=== PATIENT | female | born 1940 | race Caucasian/White ===

== ENCOUNTER 2019-06-07 17:24 | Emergency (ER) | payer MEDICARE, OTHER ==
[~2019-06-07] VITALS: Ht 160 cm; Wt 80.0 kg
[~2019-06-07 17:24] MED LIST: ONDA4TAB14 PO
[2019-06-07 17:29] VITALS: Ht 160 cm; Wt 80.0 kg
[2019-06-07] MEDS ORDERED: SOD CHLORIDE 0.9% 1,000 ML IV STA (18:29)
[2019-06-07] MEDS ORDERED: ONDANSETRON 4 MG INJ IV STA (18:29)
[2019-06-07] MEDS ORDERED: KETOROLAC 15 MG INJ IV STA (18:29)
[2019-06-07 20:15] VITALS: BP 129/71; PULSE 76; RESP 18
== END 2019-06-07 21:44 | disposition home or self-care (01) ==
LOC: E/R 17:24
DX: K80.50 Calculus of bile duct without cholangitis or cholecystitis without obstruction (principal)
CPT/HCPCS: 74176; 80053; 81001; 83690; 85025; 96374; 96375; 99285; J1885; J2405; J7030